=== PATIENT | male | born 1980 | race Asian ===

== ENCOUNTER → 2020-05-12 | Outpatient (CLI) | payer OTHER ==
[2020-05-12 12:18] LABS: COLLAGEN EPINEPHRINE 117 SECONDS (74-162)
== END ==
LOC: M LAB 11:06
PROVIDERS: ATTEND Physician Assistant
DX: M47.817 Spondylosis without myelopathy or radiculopathy, lumbosacral region (principal)

== ENCOUNTER → 2020-06-10 | Outpatient (CLI) | payer OTHER ==
[2020-06-10 12:51] LABS: PLATELET COUNT, AUTOMATED 214 10^3/uL (150-450)
== END ==
LOC: M LAB 12:15
PROVIDERS: ATTEND Physician Assistant
DX: Z01.812 Encounter for preprocedural laboratory examination (principal)

== ENCOUNTER → 2021-01-05 | Outpatient (REF) ==
--- NOTE | 2021-01-05 13:41 | REP ---
INDICATION: PAIN COMPARISON: None. TECHNIQUE: Three views right knee. FINDINGS: There is no evidence of acute fracture, dislocation, or intrinsic bone disease.Small metallic plate is seen along the lateral femoral condyle and anteromedial proximal tibia. There is mild diffuse spurring of the patella. There is mild spurring of the femoral condyles. There is no significant joint space narrowing. There is no radiographic evidence of a significant joint effusion. IMPRESSION: No fracture or dislocation. Postsurgical changes with osseous spurring at the margins of the joint. <Electronically signed by Rodrigo Ivey > 01/05/21 [id number]
--- NOTE | 2021-01-05 13:42 | REP ---
INDICATION: PAIN. COMPARISON: None. TECHNIQUE: Three AP and lateral views lumbar spine. FINDINGS: There is no compression fracture. There is straightening of the normal lumbar lordosis. There is moderate diffuse spurring. There is mild disc space narrowing and subchondral sclerosis at L1-2 and L4-5. There is sclerosis and spurring at the facets of L4-5 and L5-S1. The posterior elements are intact. IMPRESSION: Degenerative changes as above. <Electronically signed by Rodrigo Ivey > 01/05/21 [id number]
== END ==
LOC: M PLAIMG 11:02
PROVIDERS: ATTEND Internal Medicine
DX: Z00.00 Encounter for general adult medical examination without abnormal findings (principal)